=== PATIENT | male | born 1955 | race African-American/Black ===

== ENCOUNTER 2025-03-01 02:44 | Observation (INO) | payer MEDICARE ==
[2025-03-01] MEDS ORDERED: Ondansetron PF 4 MG/2 ML Vial ONE (03:09)
[2025-03-01] MEDS ORDERED: Aspirin Chewable 81 MG TAB ONE (03:09)
[2025-03-01] MEDS ORDERED: Pantoprazole 40 MG VIAL ONE (03:12)
[2025-03-01 03:26] LABS: #Basophils Less than 0.03 10x3/uL (0.0-0.2); #Eosinophils 0.15 10x3/uL (0.0-0.7); #Monocytes 0.52 10x3/uL (0.11-0.59); #Neutrophils 2.80 10x3/uL (1.40-6.50); %Basophils 0.4 % (0.0-1.0); %Eosinophils 2.8 % (0.0-10.0); %Lymphocytes 34.9 % (21.0-51.0); %Monocytes 9.7 % (0.0-10.0); %Neutrophils 52.0 % (42.0-75.0); Hematocrit 45.0 % (42.0-52.0); Hemoglobin 15.4 g/dL (14.0-18.0); Mean Corpuscular Hemoglobin 30.0 pg (27.0-31.0); Mean Corpuscular Volume 87.5 fL (78.0-98.0); Platelet Count 206 10x3/uL (130-400); Red Blood Cell (RBC) Count 5.14 mill/uL (4.70-6.10); White Blood Cell (WBC) Count 5.38 10x3/uL (4.8-10.8)
[2025-03-01 03:57] LABS: Troponin I Less than 0.010 ng/mL (< 0.028)
[2025-03-01 04:00] LABS: Lipase 429 U/L (8-78)
[2025-03-01 04:14] LABS: ALT (SGPT) 10 U/L (Less than 45); AST (SGOT) 18 U/L (11-34); Albumin 3.8 g/dL (3.1-4.5); Alkaline Phosphatase 76 U/L (40-110); Anion Gap 13 mmol/L (10-20); BUN (Urea Nitrogen) 15 mg/dL (8.4-25.7); Bilirubin, Total 0.6 mg/dL (0.3-1.2); Calc. Creatinine Clearance 0 mL/min (70-130); Calcium 8.8 mg/dL (7.8-10.44); Carbon Dioxide 26 mmol/L (23-31); Chloride 105 mmol/L (98-107); Globulin 3.9 g/dL (2.4-3.5); Glucose 99 mg/dL (80-115); Potassium 3.2 mmol/L (3.5-5.1); Sodium 141 mmol/L (136-145)
[2025-03-01 06:18] LABS: Bacteria/HPF None Seen HPF (None Seen); CAUTI Indications for Culture Pelvic or flank pain; Glucose, Urine (Dipstick) Normal (Negative); Leukocyte Negative Leu/uL (Negative); Protein, Urine (Dipstick) Negative (Neg-Trace); RBC/HPF 0-3 HPF (0-3)
[2025-03-01 06:19] LABS: Specific Gravity, Urine Greater than 1.050 (1.002-1.036); Urine Culture Reflex No No
[2025-03-01 07:42] LABS: Troponin I Less than 0.010 ng/mL (< 0.028)
[2025-03-01] MEDS ORDERED: Melatonin 3 MG TAB PO PRN (08:01)
[2025-03-01] MEDS ORDERED: Acetaminophen 325 MG TAB PO PRN (08:01)
[2025-03-01] MEDS ORDERED: Ketorolac Tromethamine 30 MG (1 mL) VIAL IVP PRN (08:01)
[2025-03-01] MEDS ORDERED: Iopamidol 370 76% 100 ML VIAL ONE (08:53)
[2025-03-01] MEDS ORDERED: Losartan 25 MG TAB PO SCH (09:00)
[2025-03-01 09:16] LABS: Cardiac Risk 4.7 (Less than 4.5); Cholesterol 222.0 mg/dl (< 200 Desired); HDL Cholesterol 47.0 mg/dL (>60 Neg Risk); LDL Cholesterol, Calculated 162.0 mg/dL; Triglycerides 67.0 mg/dL (Less than 150)
[2025-03-01 10:30] VITALS: BMI 29.0
[2025-03-01] MEDS: Finasteride 5 MG TAB PO SCH (11:29)
[2025-03-01 14:47] LABS: Cocaine Metabolite Screen Negative (Negative); THC/Cannabinoid Screen PRELIM POSITIVE (Negative); Tricyclic Screen Negative (Negative)
[2025-03-02 05:25] LABS: #Basophils Less than 0.03 10x3/uL (0.0-0.2); #Eosinophils 0.10 10x3/uL (0.0-0.7); #Monocytes 0.42 10x3/uL (0.11-0.59); #Neutrophils 2.93 10x3/uL (1.40-6.50); %Basophils 0.4 % (0.0-1.0); %Eosinophils 2.2 % (0.0-10.0); %Lymphocytes 24.7 % (21.0-51.0); %Monocytes 9.1 % (0.0-10.0); %Neutrophils 63.4 % (42.0-75.0); Hematocrit 43.1 % (42.0-52.0); Hemoglobin 14.3 g/dL (14.0-18.0); Mean Corpuscular Hemoglobin 29.7 pg (27.0-31.0); Mean Corpuscular Volume 89.6 fL (78.0-98.0); Platelet Count 144 10x3/uL (130-400); Red Blood Cell (RBC) Count 4.81 mill/uL (4.70-6.10); White Blood Cell (WBC) Count 4.62 10x3/uL (4.8-10.8)
[2025-03-02 05:38] LABS: ALT (SGPT) 72 U/L (Less than 45); AST (SGOT) 53 U/L (11-34); Albumin 3.1 g/dL (3.1-4.5); Alkaline Phosphatase 84 U/L (40-110); Anion Gap 10 mmol/L (10-20); BUN (Urea Nitrogen) 9 mg/dL (8.4-25.7); Bilirubin, Total 0.6 mg/dL (0.3-1.2); Calc. Creatinine Clearance 92 mL/min (70-130); Calcium 8.1 mg/dL (7.8-10.44); Carbon Dioxide 24 mmol/L (23-31); Chloride 109 mmol/L (98-107); Globulin 3.1 g/dL (2.4-3.5); Glucose 88 mg/dL (80-115); Potassium 3.6 mmol/L (3.5-5.1); Sodium 139 mmol/L (136-145)
[2025-03-02] MEDS: BIKTARVY 50-200-25 MG TABLET PO SCH (08:46)
[2025-03-02 11:50] VITALS: BP 123/85; TEMP 98.4
== END 2025-03-02 14:40 | disposition home or self-care (01) ==
LOC: ERS 02:44 → 2NO 06:54
PROVIDERS: ADMIT Family Medicine; ATTEND Family Medicine
DX: K85.90 Acute pancreatitis without necrosis or infection, unspecified (principal); R74.01 Elevation of levels of liver transaminase levels; R91.1 Solitary pulmonary nodule; I10 Essential (primary) hypertension; Z21 Asymptomatic human immunodeficiency virus [HIV] infection status; Z90.49 Acquired absence of other specified parts of digestive tract; Z79.899 Other long term (current) drug therapy
CPT/HCPCS: 71045; 74177; 76705; 80053; 80061; 80306; 81001; 83036; 83690; 84484 ×2; 85025; 93005; 96374; 96375; 96376; 99285; G0378 ×3; J2270; J2405; J2470; J7120; Q9967; 36415; 84443